=== PATIENT | male | born 1955 | race Caucasian/White ===

== ENCOUNTER → 2024-01-05 12:17 | Outpatient (REF) | payer OTHER, SELFPAY | LOC: DHCBC/DCA 12:17 | PROVIDERS: ATTENDING PHYSICIAN Internal Medicine; FAMILY PHYSICIAN Family Medicine | DX: I25.10 Atherosclerotic heart disease of native coronary artery without angina pectoris (principal); I49.3 Ventricular premature depolarization | CPT/HCPCS: 78452; 93017; A9500 ==

== ENCOUNTER → 2024-01-12 07:14 | Outpatient (REF) | payer OTHER, SELFPAY | LOC: DHCBC HW 07:14 | PROVIDERS: ATTENDING PHYSICIAN Internal Medicine; FAMILY PHYSICIAN Family Medicine | DX: I25.10 Atherosclerotic heart disease of native coronary artery without angina pectoris (principal) | CPT/HCPCS: 93306 ==

== ENCOUNTER → 2024-01-13 08:18 | Outpatient (REF) | payer OTHER, SELFPAY | LOC: RCS 08:18 | PROVIDERS: ATTENDING PHYSICIAN Internal Medicine; FAMILY PHYSICIAN Family Medicine | DX: I25.10 Atherosclerotic heart disease of native coronary artery without angina pectoris (principal); I49.3 Ventricular premature depolarization | CPT/HCPCS: 93225; 93226 ==

== ENCOUNTER → 2024-02-01 16:12 | Outpatient (REF) | payer OTHER, SELFPAY | LOC: RAD 16:12 | PROVIDERS: ATTENDING PHYSICIAN Family Medicine | DX: S99.911A Unspecified injury of right ankle, initial encounter (principal) | CPT/HCPCS: 73610 ==

== ENCOUNTER → 2024-03-04 06:22 | Day surgery (SDC) | payer OTHER, SELFPAY | LOC: GI 06:22 | PROVIDERS: ATTENDING PHYSICIAN Internal Medicine Gastroenterology | DX: Z12.11 Encounter for screening for malignant neoplasm of colon (principal); Z86.010 Personal history of colon polyps; K57.30 Diverticulosis of large intestine without perforation or abscess without bleeding; K64.8 Other hemorrhoids | CPT/HCPCS: G0105 ==

== ENCOUNTER → 2025-01-10 07:11 | Outpatient (REF) | payer OTHER, SELFPAY | LOC: RAD 07:11 | PROVIDERS: ATTENDING PHYSICIAN Surgery; FAMILY PHYSICIAN Family Medicine | DX: R19.00 Intra-abdominal and pelvic swelling, mass and lump, unspecified site (principal) | CPT/HCPCS: 74177; Q9967 ==

== ENCOUNTER → 2025-05-19 08:22 | Outpatient (REF) | payer OTHER, SELFPAY | LOC: RCS 08:22 | PROVIDERS: ATTENDING PHYSICIAN Internal Medicine; FAMILY PHYSICIAN Family Medicine | DX: I25.10 Atherosclerotic heart disease of native coronary artery without angina pectoris (principal); I48.0 Paroxysmal atrial fibrillation | CPT/HCPCS: 93306 ==

== ENCOUNTER → 2025-05-24 08:21 | Outpatient (REF) | payer OTHER, SELFPAY | LOC: RCS 08:21 | PROVIDERS: ATTENDING PHYSICIAN Internal Medicine; FAMILY PHYSICIAN Family Medicine | DX: I49.3 Ventricular premature depolarization (principal) | CPT/HCPCS: 93225; 93226 ==